=== PATIENT | female | born 1930 | race Two or more races ===

== ENCOUNTER 2017-11-04 12:00 | Outpatient (CLI) | payer OTHER | END 2017-11-04 12:08 | disposition home or self-care (01) | LOC: TOM 12:00 | DX: R91.1 Solitary pulmonary nodule (principal) ==

== ENCOUNTER → 2017-11-04 | Outpatient (CLI) | payer OTHER ==
[~2017-11-04] MED LIST: AVAPRO75 MG; DOLOGESIC CAPSU1 CAP PO; FLEXERIL10 MG; LANTUS100 U/ML; LEVAQUIN500 MG PO; MEDROL4 MG PO; NOVOLOG100 U/M1; TESSALON PERLE100 M1 PO; TUSSI PRES-B L120 M1 PO; TUSSIONEX PENNKI5 ML PO; XOPENEX1.25 MG/0. IH
== END | disposition home or self-care (01) ==
LOC: RAD 11:45
DX: J45.998 Other asthma (principal)

== ENCOUNTER 2017-12-24 09:18 | Emergency (ER) | payer OTHER ==
[~2017-12-24] VITALS: Ht 152.4 cm; Wt 61.2 kg
[2017-12-24] MEDS ORDERED: MONTELUKAST SOD10 MG (09:40)
[2017-12-24] MEDS ORDERED: GLIPIZIDE10 MG (09:41)
[2017-12-24] MEDS ORDERED: LOSARTAN-HCTZ1 EAC1 (09:41)
[2017-12-24] MEDS ORDERED: DOXYCYCLINE HY100 M2 (09:42)
[2017-12-24] MEDS ORDERED: GABAPENTIN300 MG (09:42)
[2017-12-24] MEDS ORDERED: ULTRACET PO (14:09)
== END 2017-12-24 16:00 | disposition home or self-care (01) ==
LOC: ER 09:18
DX: M54.31 Sciatica, right side (principal); M54.5 Low back pain

== ENCOUNTER 2018-05-15 10:00 | Emergency (ER) | payer OTHER ==
[~2018-05-15] VITALS: Ht 154.9 cm; Wt 61.2 kg
[~2018-05-15 10:00] MED LIST changes: +DOXYCYCLINE HY100 M2; +GABAPENTIN300 MG; +GLIPIZIDE10 MG; +LOSARTAN-HCTZ1 EAC1; +MONTELUKAST SOD10 MG; +ULTRACET PO
[2018-05-15] MEDS ORDERED: OSTERA TABLET1 EACH (10:26)
== END 2018-05-15 13:16 | disposition home or self-care (01) ==
LOC: ER 10:00
DX: R42 Dizziness and giddiness (principal)

== ENCOUNTER 2018-06-26 16:00 | Emergency (ER) | payer OTHER ==
[~2018-06-26] VITALS: Ht 152.4 cm; Wt 61.2 kg
[~2018-06-26 16:00] MED LIST changes: +OSTERA TABLET1 EACH
== END 2018-06-26 17:31 | disposition home or self-care (01) ==
LOC: ER 16:00
DX: S00.03XA Contusion of scalp, initial encounter (principal); S70.02XA Contusion of left hip, initial encounter; S70.01XA Contusion of right hip, initial encounter; W06.XXXA Fall from bed, initial encounter; Y93.89 Activity, other specified; Y92.230 Patient room in hospital as the place of occurrence of the external cause; Y99.8 Other external cause status

== ENCOUNTER 2018-07-02 09:25 | Outpatient (CLI) | payer OTHER | END 2018-07-02 09:28 | disposition home or self-care (01) | LOC: RAD 09:25 | DX: M25.561 Pain in right knee (principal); M25.562 Pain in left knee ==

== ENCOUNTER → 2018-07-22 | Outpatient (CLI) | payer OTHER | END | disposition home or self-care (01) | LOC: MRI 11:15 | DX: M25.561 Pain in right knee (principal); M25.562 Pain in left knee | CPT/HCPCS: 73721 ==

== ENCOUNTER 2018-09-04 08:58 | Outpatient (CLI) | payer OTHER | END 2018-09-04 09:01 | disposition home or self-care (01) | LOC: SONOGRAMA 08:58 | DX: R10.9 Unspecified abdominal pain (principal) ==

== ENCOUNTER 2018-10-02 14:07 | Emergency (ER) | payer OTHER ==
[~2018-10-02] VITALS: Ht 144.8 cm; Wt 60.8 kg
== END 2018-10-02 20:27 | disposition home or self-care (01) ==
LOC: ER 14:07
DX: J45.998 Other asthma (principal)

== ENCOUNTER 2018-11-19 15:10 | Inpatient (IN) | payer OTHER ==
[~2018-11-19] VITALS: Ht 127 cm; Wt 59.9 kg
--- NOTE | 2018-11-19 16:06 | NUR ---
PTE SE RECIBE POR ABDOMINAL PAIN Y NAUSEA REFIERE PARAMEDICO Y FAMILIAR.
--- NOTE | 2018-11-19 16:57 | NUR ---
PACIENTE ALERTA ACOMPANADO DE FAMILIAR, EVALUADA POR EL DR. CHRIS SE ORIENTA A PACIENTE SOBRE TRATAMIENTO MEDICO SE EXTRAEN MUESTRAS DE SCOTT Y SE ADMINISTRAN MEDICAMENTOS ANH ORDEN MEDICA BAJO MEDIDAS ASEPTICAS.
--- NOTE | 2018-11-19 23:27 | NUR ---
PACIENTE ALERTA Y ORIENTADA POR MARY ESFERAS EN IGGY CON BARANDAS ELEVADAS POR BELLAMY SEGURIDAD. SE OBSERVA H/L PATENTE MAURISIO DE EDEMA Y ERNOJECIMEINTO. PENDIENTE RE-EVALUACION MEDICA.
--- NOTE | 2018-11-20 07:36 | NUR ---
SE RECIBE PTE ALERTA Y ORIENTADA X3, PTE COLOCADA EN IGGY CON BARANDAS ELEVADAS Y INTERCOM ACCESIBLE. PTE CON UN .9 A 125ML/HR. CONSULTADA CON .
== END 2018-11-30 18:59 | disposition home or self-care (01) | DRG 415 ==
LOC: ER 15:10 → MEDI 11-20 07:43 → MEDJ 11-20 07:43 → SURG 11-20 07:43 → MEDJ 11-20 14:42 → SURG 11-24 15:01
PROVIDERS: Specialist; ADMIT Internal Medicine Cardiovascular Disease
PROC: BF37ZZZ Magnetic Resonance Imaging (MRI) of Pancreas (ICD-10-PCS; 2018-11-20)
PROC: 3E0F7GC Introduction of Other Therapeutic Substance into Respiratory Tract, Via Natural or Artificial Opening (ICD-10-PCS; 2018-11-20)
PROC: 0T9B70Z Drainage of Bladder with Drainage Device, Via Natural or Artificial Opening (ICD-10-PCS; 2018-11-20)
PROC: 02HV33Z Insertion of Infusion Device into Superior Vena Cava, Percutaneous Approach (ICD-10-PCS; 2018-11-21)
PROC: 0FT40ZZ Resection of Gallbladder, Open Approach (ICD-10-PCS; principal; 2018-11-24 11:30)
PROC: B54DZZZ Ultrasonography of Bilateral Lower Extremity Veins (ICD-10-PCS; 2018-11-28)
DX: K80.00 Calculus of gallbladder with acute cholecystitis without obstruction (principal); J44.1 Chronic obstructive pulmonary disease with (acute) exacerbation; I10 Essential (primary) hypertension; E11.65 Type 2 diabetes mellitus with hyperglycemia; Z79.4 Long term (current) use of insulin

== ENCOUNTER 2019-10-22 11:12 | Outpatient (CLI) | payer OTHER | END 2019-10-22 12:05 | disposition home or self-care (01) | LOC: RAD 11:12 | DX: J45.21 Mild intermittent asthma with (acute) exacerbation (principal); J30.1 Allergic rhinitis due to pollen; J45.20 Mild intermittent asthma, uncomplicated ==

== ENCOUNTER 2019-11-15 15:26 | Outpatient (CLI) | payer OTHER | END 2019-11-15 15:33 | disposition home or self-care (01) | LOC: RAD 15:26 | DX: M54.5 Low back pain (principal); M17.0 Bilateral primary osteoarthritis of knee; M54.2 Cervicalgia ==

== ENCOUNTER → 2020-03-21 13:21 | Outpatient (CLI) | payer OTHER ==
[~2020-03-21 13:21] MED LIST changes: +CEPHALEXIN500 M1; +FLONASE16 GM NASAL; +MONTELUKAST SOD10 MG PO; +PEPCID40 MG PO; +PRILOSEC OTC20 MG PO
== END | disposition home or self-care (01) ==
LOC: OFIC 805 12:45
PROVIDERS: ATTEND Otolaryngology
DX: H90.3 Sensorineural hearing loss, bilateral (principal); J30.89 Other allergic rhinitis; R09.81 Nasal congestion; K21.9 Gastro-esophageal reflux disease without esophagitis; H61.23 Impacted cerumen, bilateral

== ENCOUNTER 2020-03-31 13:14 | Emergency (ER) | payer OTHER ==
[~2020-03-31] VITALS: Ht 160 cm; Wt 61.2 kg
[~2020-03-31 13:14] MED LIST changes: -CEPHALEXIN500 M1
== END 2020-03-31 15:28 | disposition home or self-care (01) ==
LOC: ER 13:14
DX: S61.421A Laceration with foreign body of right hand, initial encounter (principal); S80.02XA Contusion of left knee, initial encounter; S80.01XA Contusion of right knee, initial encounter; W18.09XA Striking against other object with subsequent fall, initial encounter; Y93.89 Activity, other specified; Y92.89 Other specified places as the place of occurrence of the external cause; Y99.8 Other external cause status

== ENCOUNTER 2020-04-05 16:34 | Emergency (ER) | payer OTHER ==
[~2020-04-05] VITALS: Ht 152.4 cm; Wt 60.8 kg
[2020-04-05] MEDS ORDERED: CEPHALEXIN500 M1 (16:46)
== END 2020-04-05 19:09 | disposition home or self-care (01) ==
LOC: ER 16:34
DX: G89.11 Acute pain due to trauma (principal); S62.317S Displaced fracture of base of fifth metacarpal bone, left hand, sequela; W18.09XS Striking against other object with subsequent fall, sequela

== ENCOUNTER 2020-04-10 17:39 | Emergency (ER) | payer OTHER ==
[~2020-04-10] VITALS: Ht 152.4 cm; Wt 61.2 kg
[~2020-04-10 17:39] MED LIST changes: +CEPHALEXIN500 M1
[2020-04-10] MEDS ORDERED: DURACHOL 3,7751 EACH PO (18:01)
[2020-04-10] MEDS ORDERED: GLIPIZIDE XL10 MG PO (18:01)
[2020-04-10] MEDS ORDERED: NEURONTIN300 MG PO (18:01)
[2020-04-10] MEDS ORDERED: COZAAR100 MG PO (18:01)
== END 2020-04-10 21:17 | disposition home or self-care (01) ==
LOC: ER 17:39
DX: Z48.02 Encounter for removal of sutures (principal); G89.11 Acute pain due to trauma; M79.642 Pain in left hand; M79.641 Pain in right hand

== ENCOUNTER → 2020-07-03 | Outpatient (CLI) | payer OTHER ==
[~2020-07-03] MED LIST changes: +COZAAR100 MG PO; +DURACHOL 3,7751 EACH PO; +GLIPIZIDE XL10 MG PO; +NEURONTIN300 MG PO
== END | disposition home or self-care (01) ==
LOC: TOM 10:44
PROVIDERS: ATTEND Internal Medicine Cardiovascular Disease
DX: R41.3 Other amnesia (principal); G93.89 Other specified disorders of brain

== ENCOUNTER 2021-03-12 10:42 | Outpatient (CLI) | payer OTHER | END 2021-03-12 10:52 | disposition home or self-care (01) | LOC: RAD 10:42 | PROVIDERS: ATTEND Physical Medicine & Rehabilitation | DX: M54.5 Low back pain (principal); M16.0 Bilateral primary osteoarthritis of hip; M17.0 Bilateral primary osteoarthritis of knee ==